=== PATIENT | male | born 1965 | race Caucasian/White ===

== ENCOUNTER 2017-09-06 09:45 | Emergency (ER) | payer OTHER ==
--- NOTE | 2017-09-06 10:17 | Emergency Department Record ---
History of Present Illness - General Chief Complaint: Fall Injury Stated Complaint: FALL/BACK PAIN Time Seen by Provider: 09/06/17 10:10 Source: Patient Mode of Arrival: EMS - History of Present Illness Initial Comments: slipped inwater hitting a rock upon landing on his left thoracic back. He became winded from the impact, but now feels pain and tightness on his thoracic back. Complaint: Fall Onset/Timin -: Minutes(s) Fall From: Other When Fall Occurred: Just prior to arrival Fall Witnessed: No Place Fall Occurred: Work Loss of Consciousness: None Prolonged Down Time?: No Symptoms Prior to Fall: None Location: Back Severity scale (1-10): 6 Quality: Sharp Context: Tripped/slipped Associated Symptoms: Denies - Related Data Home Medications Medication Instructions Recorded Confirmed Last Taken No Home Med [NO HOME MEDS] 09/06/17 09/06/17 Unknown Allergies Allergy/AdvReac Type Severity Reaction Status Date / Time erythromycin base Allergy HIVES Verified 06/29/16 15:57 Travel Screening - Travel/Exposure Within Last 30 Days Have you traveled within the last 30 days?: No Review of Systems Reviewed: No additional complaints except as noted below Constitutional: Reports: As per HPI. Denies: Chills, Fever, Malaise, Night sweats, Weakness, Weight change Eyes: Reports: As per HPI. Denies: Eye discharge, Eye pain, Photophobia, Vision change ENT: Reports: As per HPI. Denies: Congestion, Dental pain, Ear pain, Epistaxis , Hearing loss, Throat pain Respiratory: Reports: As per HPI. Denies: Cough, Dyspnea, Hemoptysis, Stridor, Wheezes Cardiovascular: Reports: As per HPI. Denies: Arrhythmia, Chest pain, Dyspnea on exertion, Edema, Murmurs, Orthopnea, Palpitations, Paroxysmal nocturnal dyspnea, Rheumatic Fever, Syncope Endocrine: Reports: As per HPI. Denies: Fatigue, Heat or cold intolerance, Polydipsia, Polyuria Gastrointestinal: Reports: As per HPI. Denies: Abdominal pain, Constipation, Diarrhea, Hematemesis, Hematochezia, Melena, Nausea, Vomiting Genitourinary: Reports: As per HPI. Denies: Dysuria, Frequency, Hematuria, Incontinence, Retention, Testicular pain, Testicular mass, Urgency Musculoskeletal: Reports: As per HPI. Denies: Arthralgia, Back pain, Gout, Joint swelling, Myalgia, Neck pain Skin: Reports: As per HPI. Denies: Bruising, Change in color, Change in hair/ nails, Lesions, Pruritus, Rash Neurological: Reports: As per HPI. Denies: Abnormal gait, Confusion, Headache, Numbness, Paresthesias, Seizure, Tingling, Tremors, Vertigo, Weakness Psychiatric: Reports: As per HPI. Denies: Anxiety, Auditory hallucinations, Depression, Homicidal thoughts, Suicidal thoughts, Visual hallucinations Hematological/Lymphatic: Reports: As per HPI. Denies: Anemia, Blood Clots, Easy bleeding, Easy bruising, Swollen glands Past Medical History - SOCIAL HISTORY Smoking Status: Never smoker Alcohol Use: None Drug Use: None - RESPIRATORY Hx Respiratory Disorders: No - CARDIOVASCULAR Hx Cardio Disorders: No - NEURO Hx Neuro Disorders: No - GI Hx GI Disorders: No - Hx Genitourinary Disorders: No - ENDOCRINE Hx Endocrine Disorders: No - MUSCULOSKELETAL Hx Musculoskeletal Disorders: No - PSYCH Hx Psych Problems: No - HEMATOLOGY/ONCOLOGY Hx Hematology/Oncology Disorders: Yes Hx Clotting Problems: Yes (factor 5) Family Medical History Any Significant Family History?: No Physical Exam - General General Appearance: Alert, Oriented x3, Cooperative, No acute distress - Head Head exam: Normal inspection - Eye Eye exam: Normal appearance, PERRL Pupils: Normal accommodation - ENT ENT exam: Normal exam, Mucous membranes moist, Normal external ear exam, Normal orophraynx, TM's normal bilaterally Ear exam: Normal external inspection. negative: External canal tenderness Nasal Exam: Normal inspection. negative: Discharge, Sinus tenderness Mouth exam: Normal external inspection, Tongue normal Teeth exam: Normal inspection. negative: Dental caries Throat exam: Normal inspection. negative: Tonsillar erythema, Tonsillar exudate - Neck Neck exam: Normal inspection, Full ROM, Other (no bony tenderness). 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 No other spinal tenderness.). negative: Respiratory distress - Cardiovascular Cardiovascular Exam: Regular rate, Normal rhythm, Normal heart sounds - GI/Abdominal GI/Abdominal exam: Soft, Normal bowel sounds. negative: Tenderness - Rectal Rectal exam: Deferred - exam: Deferred - Extremities Extremities exam: Normal inspection, Full ROM, Normal capillary refill. negative: Tenderness - Back Back exam: Reports: Normal inspection, Full ROM. Denies: Muscle spasm, Rash noted, Tenderness - Neurological Neurological exam: Alert, Normal gait, Oriented X3, Reflexes normal - Psychiatric Psychiatric exam: Normal affect, Normal mood - Skin Skin exam: Dry, Intact, Normal color, Warm Course Vital Signs 09/06/17 09:50 Temperature 98.2 F Pulse Rate 83 Respiratory 18 Rate Blood Pressure 154/99 Pulse Ox 97 - Reevaluation(s) Reevaluation #1: 09/06/17 10:22 declined pain medication Reevaluation #2: Patient continues to decline pain medication. He is ready for discharge. Water given as he is thirsty. 09/06/17 12:22 Reevaluation #3: Patient offered off work note, work restriction, and pain medication and declined all three. 09/06/17 12:27 Medical Decision Making - Management Options MDM Management: No Additional Work-up Planned - Data Complexity MDM Data: Labs Ordered and/or Reviewed, X-Ray Ordered and/or Reviewed (Thoracic CT Scan: No acute abnormalitiy. 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 Per Radiologist.) - Lab Data Result diagrams: 09/06/17 10:45 09/06/17 10:45 Disposition Disposition: Discharge Clinical Impression: Ascending aortic aneurysm Contusion of left back wall of thorax Qualifiers: Encounter type: initial encounter Qualified Code(s): S20.222A - Contusion of left back wall of thorax, initial encounter Disposition: Home, Self-Care Condition: (1) Good Instructions: Fall Prevention for Older Adults (ED), Muscle Spasm (ED), Back Pain (ED) Additional Instructions: Work restriction: no lifting bending twisting. Ice to Contusion first 48 hours. tylenol or ibuprofen as directed as needed for pain. Expect to feel more discomfort tomorrow. Follow up with your PCP WITHOUT FAIL to arrange following of your thoracic ascending aneurysm of 4.4 cm found incidentally on your CT scan. Quality - Quality Measures Quality Measures: N/A - Blood Pressure Screening Does Patient Have Any of the Following: No Blood Pressure Classification: Hypertensive Reading Systolic Measurement: 154 Diastolic Measurement: 99 Screening for High Blood Pressure: < Pre-Hypertensive BP, F/U Documented > [ [id number]] Pre-Hypertensive Follow-up Interventions: Follow-up with rescreen every year.
[2017-09-06 10:53] LABS: BASO % 0.9 % (0-6); EOS % 1.3 % (0-6); GRAN % 63.1 % (47-80); HEMATOCRIT 45.9 % (42.0-52.0); HEMOGLOBIN 16.2 gm/dl (14.0-18.0); MEAN CELL VOLUME 89.6 fl (81-97); MEAN CORPUSCULAR HEMOGLOBIN 31.6 pg (27-33); MEAN CORPUSCULAR HGB CONC 35.3 g/dl (32-36); MEAN PLATELET VOLUME 10.6 fl (7.4-10.4); MONO % 8.7 % (0-9); PLATELET COUNT 154 K/uL (130-400); RED BLOOD COUNT 5.12 M/uL (4.40-5.70); RED CELL DISTRIBUTION WIDTH 13.3 % (11.5-14.5); WHITE BLOOD COUNT W/O DIFF 4.6 K/uL (4.2-12.2)
[2017-09-06 11:03] LABS: BLOOD UREA NITROGEN 16 mg/dL (6-20); CREATININE 0.9 mg/dL (0.7-1.2); EST GLOMERULAR FILTRATION RATE > 60 mL/min
[2017-09-06 11:06] LABS: GLUCOSE,RANDOM 95 mg/dL (74-109)
--- NOTE | 2017-09-06 12:42 | CT SCAN REPORT ---
EXAM: CT OF THE THORACIC SPINE WITHOUT CONTRAST HISTORY: PATIENT FELL WITH THORACIC BACK INJURY IN THE MID THORACIC SPINE. TECHNIQUE: Axial CT scan of the thoracic spine was performed without IV contrast. Comparison: No prior thoracic spine CT or plain film series. Comparison is made with the two view chest x-ray dated 12/02/12. FINDINGS: There is probably some mild aneurysmal dilatation of the ascending aorta partially seen measuring about 4.4 cm in transverse diameter. Some coronary artery calcification is present. No definite fracture of the thoracic spine identified. Mild spurring is present. There is a cleft at the tip of the spinous process of T5 which appears to be developmental. There is a prominent spur along the left side of the T6-T7 interspace which may be indenting the anterolateral aspect of the thoracic cord at this level. Less prominent spur along the left side of the T5- T6 interspace as well. IMPRESSION: 1. NO DEFINITE ACUTE FRACTURE OF THE THORACIC SPINE IDENTIFIED. 2. 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 3. SPURRING IN THE THORACIC SPINE WITH A PROMINENT POSTERIOR SPUR ALONG THE LEFT SIDE OF THE T6-T7 INTERSPACE IN PARTICULAR WHICH MAY BE INDENTING THE ANTEROLATERAL ASPECT OF THE THORACIC CORD AT THIS LEVEL. IF CLINICALLY WARRANTED THIS COULD BE FURTHER ASSESSED WITH AN MRI OF THE THORACIC SPINE. 4. THERE IS PROBABLY ANEURYSM OF THE ASCENDING AORTA PARTIALLY SEEN MEASURING ABOUT 4.4 CM IN DIAMETER. THIS COULD BE FURTHER ASSESSED WITH A COMPLETE CT SCAN OF THE CHEST IF CLINICALLY DESIRED. JOB NUMBER: [id number] MTDD
[2017-09-06 13:54] LABS: AMPHETAMINE SCREEN URINE NOT DETECTED; BARBITURATE SCREEN URINE NOT DETECTED; BENZODIAZEPINE SCREEN URINE NOT DETECTED; COCAINE SCREEN URINE NOT DETECTED; METHADONE SCREEN URINE NOT DETECTED; METHAMPHETAMINE SCREEN NOT DETECTED; OPIATE SCREEN URINE NOT DETECTED; OXYCODONE SCREEN URINE NOT DETECTED; PHENCYCLIDINE SCREEN URINE NOT DETECTED; PROPOXYPHENE SCREEN URINE NOT DETECTED; THC SCREEN URINE NOT DETECTED; TRICYCLIC ANTIDEPRESSANT SCRN NOT DETECTED
== END 2017-09-06 12:44 | disposition home or self-care (01) ==
LOC: ER 09:45
DX: S20.222A Contusion of left back wall of thorax, initial encounter (principal); I71.2 Thoracic aortic aneurysm, without rupture; Y92.63 Factory as the place of occurrence of the external cause; Y99.0 Civilian activity done for income or pay
CPT/HCPCS: 72128; 80048; 80305; 85025; 99283; 99284